=== PATIENT | male | born 1995 | race Caucasian/White ===

== ENCOUNTER 2019-06-24 18:20 | Emergency (ER) | payer MEDICAID, SELFPAY ==
[2019-06-24 18:21] VITALS: BP 143/101; PULSE 101; RESP 15; TEMP 36.6; O2SAT 99; BMI 26.9
--- NOTE | 2019-06-24 18:30 | RAD_ITS ---
STUDY: X-RAY - PELVIS REASON FOR EXAM: Male, 24 years old. Mass, stone and ventral distal penis TECHNIQUE: One view of the pelvis was obtained. COMPARISON: None. FINDINGS: Normal visualized bilateral superior and inferior pubic rami. Normal pubic symphysis. Normal ischial tuberosities. Normal visualized right femoral head. Normal right acetabulum. Normal right hip joint. Normal visualized left femoral head. Normal left acetabulum. Normal left hip joint. Normal visualized soft tissue. 3 mm calcification within the left side the scrotum. Correlate with CT or MRI if needed. RAD/Pelvis 1 or 2 Views IMPRESSION: 3 mm left scrotal calcification. Electronically Signed: Mick Covarrubias DO at 19:27 EDT Tel [phone], Service support ,
--- NOTE | 2019-06-24 18:32 | ED.DCSUM_ITS ---
History of Present Illness Chief Complaint: Male Pain/Injury Informant: Patient Onset: Days Context: Sudden Onset Timing: Continuous, Waxes and wanes Quality: Pain Location: Distal ventral side penis Current Severity: Mild Maximum Severity: Moderate Worsened by: Erection, intercourse Relieved by: Nothing Associated Symptoms: No associated symptoms Narrative: Patient is a 24-year-old male who presents with pain distal ventral side of his penis. This is been present for several days. He was seen at the [facility] urgent care and urine amplification for gonorrhea and chlamydia are negative. Urine amplification for trichomonas was negative. He denies testicular pain. He does complain of pain at the tip of his penis with urination. There is no history of trauma. There is no history of renal ureterolithiasis. Prior similar symptoms: No Recent Illness/Hospitalization: No - Past Medical History (1) Sexually transmitted infection Status: Acute Past Medical History - Allergies and Home Meds Allergies/Adverse Reactions: Allergies amoxicillin trihydrate [From Augmentin] Allergy (Verified 06/24/19 18:23) Hives naproxen Allergy (Verified 06/24/19 18:23) Itching potassium clavulanate [From Augmentin] Allergy (Verified 06/24/19 18:23) Hives Primary Care Physician: Elian Ann MD [STAFF PHYSICIAN] - Prior records reviewed: Yes Past Medical History: None Surgical History: no surgical history Lives: Alone Smoking Status: Current every day smoker Alcohol: Occasional Drugs: None Review of Systems General: Denies: Chills, Fever, Malaise, Subjective, Sweats, Weight loss, - Genitourinary: Denies: Dysuria, Hematuria, Frequency Musculoskeletal: Denies: Myalgias, Arthralgias, Neck pain, Back pain, Swelling, Extremity Pain, -, - Skin: Denies: Rash, Wounds Hematologic: Denies: Easy bruising, Easy bleeding Allergy: Denies: Uticaria, Swelling of the mouth Physical Exam Vital Signs/Narrative: Vital Signs Temp Pulse Resp BP Pulse Ox 06/24/19 18:21 97.8 F 101 H 15 143/101 H 99 Inital Vital Signs reviewed: Yes General: Well nourished, Well developed, No Acute Distress Eyes: Perrl, EOMI. Negative for: Pale conjunctiva, Scleral icterus ENT: Moist mucous membranes, No rhinorrhea Abdomen: Soft, Nontender, Nondistended, Normal bowel sounds, No masses Rectal: Deferred : - - Patient is circumcised. There is no penile lesion or discharge noted. Testicles are descended bilaterally with no testicular or epididymal pain. There is no inguinal mass or inguinal lymphadenopathy. Ventral side distal third of the penis there is a nodule/mass that is palpable. The area is not fluctuant. There is no erythema or warmth. Skin: Normal color, No rash. Negative for: Cyanosis, Diaphoresis, Jaundice, No Trauma Neurological: Alert, Oriented x3, Cranial nerves II-XII grossly intact, Normal S trength, Normal Sensation. Negative for: Normal Gait - Gait is abnormal because of pain Psychological: Normal affect, Normal Mood Diagnostic/Tx/Re-eval Chest X-Ray - ED: 1 View, Read by ED Physician, - - X-ray was obtained of the pelvis. There is no foreign body or stone noted. - Medical Decision Making Since there is a palpable nodule/mass will obtain x-ray to evaluate if there is a urethral stone. Otherwise will refer to urology. Since there is no stone concern this may represent an abscess. He was referred to urology. ED Disposition - Plan for ED Patient: Disposition: Home or Assisted Living Diagnosis: Pain in penis Instructions: PAIN, Uncertain Cause (Acute) Referrals: Elian Ann MD [STAFF PHYSICIAN] - Robert Arciniega MD [STAFF PHYSICIAN] - As soon as possible Additional Instructions: Cause of your pain is unknown. Since you have had pain for several days with a negative work-up for sexually transmitted infection you were referred to urology to determine the cause of your pain and lump.
[2019-06-24 19:39] VITALS: PULSE 76; RESP 18; O2SAT 98
--- NOTE | 2019-06-24 19:39 | ED.RN ---
THIS NURSE REVIEWED D/C INSTRUCTIONS WITH PT. PT VERBALIZED UNDERSTANDING OF INSTRUCTIONS. PT DENIES FURTHER NEEDS OR QUESTIONS AT THIS TIME. PT AMBULATES FROM ROOM ON OWN WITHOUT ASSISTANCE FROM STAFF
== END 2019-06-24 19:40 | disposition home or self-care (01) ==
PROVIDERS: Emergency Provider Emergency Medicine
DX: N48.89 Other specified disorders of penis (principal); Z86.19 Personal history of other infectious and parasitic diseases; F17.200 Nicotine dependence, unspecified, uncomplicated
CPT/HCPCS: 72170; 99282

== ENCOUNTER 2019-12-31 03:16 | Emergency (ER) | payer SELFPAY ==
[2019-12-31 03:18] VITALS: BP 144/98; PULSE 71; RESP 16; TEMP 36.4; O2SAT 100; BMI 28.5
--- NOTE | 2019-12-31 03:28 | CT_ITS ---
STUDY: CT ABDOMEN AND PELVIS WITHOUT CONTRAST REASON FOR EXAM: Male, 24 years old. Right lower quadrant pain. Appendectomy 8 years ago. TECHNIQUE: Transaxial images were obtained from the dome of the diaphragm to the symphysis pubis without oral contrast, and without intravenous contrast. Sagittal and coronal images were reconstructed. Individualized dose optimization techniques were used for this CT. COMPARISON: 04/07/2011 CT abdomen and pelvis. FINDINGS: Partially visualized lower chest: Lung bases unremarkable. Liver: No concerning lesions. Gallbladder and biliary tree: No visible gallstones. No pericholecystic inflammation. No biliary ductal dilation. Pancreas: No pancreatic lesions or inflammation. Spleen: Normal size, no splenic lesions. Adrenal glands: No concerning masses. Kidneys and ureters: 3 mm proximal right ureteral stone with mild right hydronephrosis. No residual right-sided stones. Single, 2 mm diameter, nonobstructing stone posterior calyx upper pole left kidney. Left kidney otherwise unremarkable. Both ureters are otherwise unremarkable. Bowel: Prior appendectomy. No obstruction or inflammation of the bowel. Urinary bladder: No stones or wall thickening. Reproductive:Normal size prostate. Vascular: No abdominal aortic aneurysm. Retroperitoneal and peritoneal spaces: No ascites or free air. No retroperitoneal lesions. Osseous: No acute osseous abnormality. Abdominal and pelvic wall: No concerning findings. CT/Abdomen/Pelvis without Cont IMPRESSION: 3 mm proximal right ureteral stone with mild hydronephrosis. 2 mm nonobstructing left renal stone. Electronically Signed: Jaiden Santiago, at 4:18 EST Tel , Service support ,
[2019-12-31] MEDS: Ketorolac 30 MG/ML Syringe IV (03:42)
[2019-12-31] MEDS: 0.9% Normal Saline 1,000 ML 125 ML IV (03:42)
[2019-12-31 03:47] LABS: Absolute Lymphocyte Count 2.18 X10^3/uL (0.83-4.51); Absolute Neutrophil Count 3.1 X10^3/uL (2.0-7.7); Basophil# 0.07 X10^3/uL; Basophil% 1.1 % (0-1); Eosinophil# 0.31 X10^3/uL; Eosinophils% 4.7 % (0-5); Hematocrit 43.2 % (40-54); Hemoglobin 14.7 g/dL (13.0-16.5); Lymphocyte # 2.18 X10^3/ul (4.0); Lymphocyte % 33.1 % (19-41); Mean Corpuscular Hgb 29.8 pg (27.0-32.0); Mean Corpuscular Volume 87.4 fL (80-94); Mean Platelet Vol. 9.9 fl (6.2-12.0); Monocyte# 0.91 X10^3/uL; Monocyte% 13.8 % (0-10); NRBC Flagged by Analyzer 0 % (0-5); Platelet Count 208 K/mm3 (150-450); RBC Distribution Width SD 38.1 fl (35.1-43.9); Red Blood Count 4.94 M/mm3 (4.6-6.2); White Blood Count 6.6 K/mm3 (4.4-11.0)
[2019-12-31 03:52] LABS: Bacteria 0 SEEN /hpf (None Seen); Glucose, Dipstick Normal (Normal); Ketone-Dipstick Negative (Negative); Leukocyte Esterase-Dipstick 25 /ul (Negative); Mucous, Urine 0 SEEN /hpf (<or=2+); Nitrite-Dipstick Negative (Negative); Occult Blood-Urine 150 /ul (Negative); Protein-Dipstick 15 mg/dl (Negative); Specific Gravity, Urine 1.025 (1.002-1.030); Squamous Epithelial Cells - UA 0 SEEN /hpf (0-5); Urine Bilirubin Dipstick Negative (Negative); Urine Urobilinogen Normal (Normal)
[2019-12-31 03:55] LABS: Color, Urine Yellow (Yellow); Urine Clarity Clear (Clear)
[2019-12-31 03:58] LABS: Red Blood Cells-Urine 25-50 SEEN /hpf (0-5); White Blood Cells 10-25 SEEN /hpf (0-5)
[2019-12-31 04:00] LABS: Amorphous Sediment 1+
[2019-12-31 04:02] LABS: Anion Gap 2 (5-15); BUN 18 mg/dL (7-18); BUN/Creat Ratio 16.5 RATIO (10-20); Calcium,Total 8.8 mg/dL (8.5-10.1); Chloride 110 mmol/L (98-107); Creatinine, Serum 1.09 mg/dL (0.70-1.30); EST Glomerular Filtration Rate 87 mL/min (>60); Est Glom Filt Rate - Afr Amer 106 mL/min (>60); Estimated Creatinine Clearance 110.34 ml/min; Glucose 112 mg/dL (74-106); Potassium 4.1 mmol/L (3.5-5.1); Sodium Level 142 mmol/L (136-145)
--- NOTE | 2019-12-31 04:31 | ED.VISSUMM ---
- ER Visit Summary Date of Service: 12/31/19 Chief Complaint: [Abdominal pain] History of Present Illness: The patient is a 24 M [presents the emergency department with sudden onset of right-sided abdominal pain that started 30 minutes ago. Patient states that he was awoken from sleep with severe pain in his right side. Patient denies any nausea or vomiting. He denies urinary symptoms. Has had no fever. He is never had pain like this before. Patient has had prior appendectomy. No history of kidney stones.] Physical Examination: [HEENT-PERRLA, EOMI. Cranial nerves II through XII grossly intact. TMs clear. Mucous membranes moist. No adenopathy. Cardiovascular-regular rate and rhythm without murmur or ectopy Lungs-clear to auscultation, chest wall stable without crepitus or subcu emphysema Abdomen-normoactive bowel sounds, soft. Patient has mild right lower quadrant tenderness on palpation. There is no rebound, rigidity, or perineal signs. No CVA tenderness on exam. Extremities-intact ?4, normal range of motion, normal pulses, atraumatic] Test Results: [CBC with differential was normal. Chemistries normal. Urinalysis showed 25-50 RBCs and 10-25 WBCs with no bacteria noted and [address] flank showed a 3 mm proximal right ureteral stone with mild hydro-ureter.] Emergency Department Course and Treatment: [Patient had an IV line established and was medicated with Toradol 30 mg IV. Patient's pain essentially resolved.] Treatment Plan: Patient will be given urine strainers as well as a prescription for Naprosyn and [place]. 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 Advised to return if worsening pain, fever, vomiting, or condition should worsen anyway.] Disposition: [Discharged home in stable condition] Impression: [Kidney stone with colic] This note was generated with [employer] dictation software. It may contain incorrect words, spelling, and punctuation that were not noted in review of the chart prior to signing ED Disposition - Plan for ED Patient: Referrals: Care Physician,No Primary [Primary Care Provider] -
--- NOTE | 2019-12-31 04:33 | DCINST.ED_ITS ---
ED Disposition - Plan for ED Patient: Instructions: KIDNEY STONE w/ Colic Prescriptions: Naproxen [Naprosyn] 500 mg PO BID PRN #20 tab Prescription Printed Hydrocodone Bitart/Apap 5-325 [[place] 5MG-325MG] 1 tab PO Q4H PRN PRN 2 Days #14 tab PRN Reason: Pain Prescription Printed Referrals: Care Physician,No Primary [Primary Care Provider] - Robert Arciniega MD [STAFF PHYSICIAN] - 3-5 Days
[2019-12-31 04:50] VITALS: PULSE 84; RESP 16; O2SAT 98
--- NOTE | 2020-01-12 02:03 | ED.RN ---
CHART OPENED TO PRINT STICKERS FOR T-SHEET
== END 2019-12-31 04:52 | disposition home or self-care (01) ==
LOC: ED 03:44
PROVIDERS: Emergency Provider Emergency Medicine
DX: N13.2 Hydronephrosis with renal and ureteral calculous obstruction (principal)
CPT/HCPCS: 74176; 80048; 81001; 85025; 96361; 96374; 99283; J7030; A4216

== ENCOUNTER 2020-02-14 19:50 | Emergency (ER) | payer SELFPAY ==
[2020-02-14 19:51] VITALS: BP 161/71; PULSE 83; RESP 19; TEMP 36.3; O2SAT 98; BMI 28.1
--- NOTE | 2020-02-14 20:02 | ED.VIS.GEN ---
History of Present Illness Chief Complaint: Flank Pain Detail of Chief Complaint: Left flank pain Informant: Patient Onset: Yesterday Context: Sudden Onset Timing: Continuous, Waxes and wanes Quality: Colicky Location: Left flank radiating anteriorly Current Severity: Mild Maximum Severity: Severe Worsened by: Nothing Relieved by: Nothing Associated Symptoms: Nausea Narrative: Patient is a 24-year-old male who was seen in December and diagnosed with an obstructing 3 mm stone. He presents because of abrupt onset of left flank pain that radiates anteriorly. Onset yesterday. Pain is constant and waxing and waning nature. He denies dysuria, frequency, urgency but does report urgency. He denies testicular pain. There is no history of trauma. There are no precipitating, alleviating or exacerbating factors. Patient states he did pass the right stone. Prior similar symptoms: Yes Recent Illness/Hospitalization: Yes - December 2019 - Past Medical History (1) Right ureteral stone Status: Suspected (2) Renal calculus, left Status: Acute Past Medical History - Allergies and Home Meds Allergies/Adverse Reactions: Allergies amoxicillin trihydrate [From Augmentin] Allergy (Verified 02/14/20 19:50) Hives naproxen Allergy (Verified 02/14/20 19:50) Itching potassium clavulanate [From Augmentin] Allergy (Verified 02/14/20 19:50) Hives Primary Care Physician: Care Physician,No Primary [Primary Care Provider] - Surgical History: no surgical history Lives: Alone Smoking Status: Current every day smoker Alcohol: Rare Drugs: None Review of Systems General: Denies: Chills, Fever, Malaise, Subjective, Sweats, Weight loss, - ENT: Denies: Bilateral ear pain, Rhinorrhea, Sore throat Cardiovascular: Denies: Chest pain, Palpitations Respiratory: Denies: Dyspnea, Cough, Dyspnea on exertion Gastrointestinal: Reports: Abdominal pain, Nausea. Denies: Vomiting, Diarrhea, Constipation, Melena, Hematochezia, -, - Genitourinary: Denies: Dysuria, Hematuria, Frequency Musculoskeletal: Reports: Back pain. Denies: Myalgias, Arthralgias, Neck pain, Swelling, Extremity Pain, -, - Skin: Denies: Rash, Wounds Endocrine: Denies: Polyuria, Polydipsia Hematologic: Denies: Easy bruising, Easy bleeding Physical Exam Vital Signs/Narrative: Vital Signs Temp Pulse Resp BP Pulse Ox 02/14/20 19:51 97.4 F L 83 19 H 161/71 H 98 Inital Vital Signs reviewed: Yes General: Well nourished, Well developed, No Acute Distress, - - Appears uncomfortable. Head: Normocephalic, Atraumatic. Negative for: Trauma, Tenderness Eyes: Perrl, EOMI. Negative for: Pale conjunctiva, Scleral icterus ENT: Moist mucous membranes, No rhinorrhea Neck: Supple, Nontender, No lymphadenopathy, No JVD Cardiovascular: Regular rate, Regular rhythm, No murmurs, Normal S1, Normal S2 Respiratory: No distress, CTA bilaterally, Chest nontender Abdomen: Soft, Nontender, Nondistended, Normal bowel sounds Back: CVA tenderness Extremities: Nontender, No edema Skin: Normal color, No rash Neurological: Alert, Oriented x3, Cranial nerves II-XII grossly intact, Normal Strength, Normal Sensation Psychological: Normal affect, Normal Mood Diagnostic/Tx/Re-eval Laboratory Results 02/14/20 20:25 Urine Color Yellow Urine Clarity Clear Urine pH 6.0 Ur Specific [place] 1.025 Urine Protein 15 H Urine Glucose (UA) Normal Urine Ketones Negative Urine Occult Blood 10 H Urine Nitrite Negative Urine Bilirubin Negative Urine Urobilinogen Normal Ur Leukocyte Esterase 100 H Urine RBC 0 SEEN Urine WBC 10-25 SEEN Ur Squamous Epith Cells 0 SEEN Urine Bacteria 0 SEEN Urine Mucus 0 SEEN Reveals pyuria without bacteria. There is evidence of occult blood. Patient presentation was consistent with a left ureteral stone. Since he had a recent CAT scan and the size of the stone is known and is only 2 mm will not rescan in light of age because of amount of radiation. Patient is understanding of this. He received a dose of Rocephin. Urine culture was sent. He was referred to urology. He was given specific signs and symptoms that necessitated return. - Medical Decision Making IV was placed. He normal saline at 250 cc/h. Because of allergy to NSAIDs he was treated with 4 mg of morphine and given 4 mg of Zofran for his nausea. Since he had a recent CAT scan that revealed a 2 mm stone on the left and no other stone will obtain a UA. If there is evidence infection will perform CT. Patient was informed reason not to repeat CAT scans because the amount of radiation and the fact he is only 24 years of age. Documented in laboratory portion of the chart ED Disposition - Plan for ED Patient: Disposition: Home or Assisted Living Diagnosis: Left ureteral calculus, Pyuria Instructions: KIDNEY STONE w/ Colic Prescriptions: Smz/Tmp Ds [Bactrim Ds] 1 tab PO BID #6 tab Transmission Status: Pending to [facility] Hydrocodone Bitart/Apap 5-325 [[place] 5MG-325MG] 1 tablet PO Q6H PRN PRN 3 Days #10 tablet PRN Reason: Pain Transmission Status: Received by [facility] Referrals: Care Physician,No Primary [Primary Care Provider] - Robert Arciniega MD [STAFF PHYSICIAN] - 3-5 Days
[2020-02-14] MEDS: Ondansetron 4 MG/2 ML Vial IV (20:08)
[2020-02-14] MEDS: Morphine 4 MG/ML Syringe IV (20:09)
[2020-02-14] MEDS: 0.9% Normal Saline 1,000 ML 250 ML IV (20:20)
[2020-02-14 20:32] LABS: Bacteria 0 SEEN /hpf (None Seen); Mucous, Urine 0 SEEN /hpf (<or=2+); Red Blood Cells-Urine 0 SEEN /hpf (0-5); Squamous Epithelial Cells - UA 0 SEEN /hpf (0-5)
[2020-02-14 20:51] LABS: Color, Urine Yellow (Yellow); Glucose, Dipstick Normal (Normal); Ketone-Dipstick Negative (Negative); Leukocyte Esterase-Dipstick 100 /ul (Negative); Nitrite-Dipstick Negative (Negative); Occult Blood-Urine 10 /ul (Negative); Protein-Dipstick 15 mg/dl (Negative); Specific Gravity, Urine 1.025 (1.002-1.030); Urine Bilirubin Dipstick Negative (Negative); Urine Clarity Clear (Clear); Urine Urobilinogen Normal (Normal)
[2020-02-14 20:52] LABS: White Blood Cells 10-25 SEEN /hpf (0-5)
[2020-02-14] MEDS: Ceftriaxone 1 GM/50 ML BAG IV (21:14)
== END 2020-02-14 21:53 | disposition home or self-care (01) ==
PROVIDERS: Emergency Provider Emergency Medicine
DX: N20.1 Calculus of ureter (principal); F17.200 Nicotine dependence, unspecified, uncomplicated
CPT/HCPCS: 81001; 87086; 96365; 96374; 96375; 99283; J7030; A4216; J2405

== ENCOUNTER 2020-03-22 22:02 | Emergency (ER) | payer SELFPAY ==
[2020-03-22 22:03] VITALS: BP 140/80; PULSE 80; RESP 14; TEMP 36.7; O2SAT 97; BMI 26.9
--- NOTE | 2020-03-22 23:18 | ED.VIS.GEN ---
History of Present Illness Chief Complaint: Flank Pain Informant: Patient Narrative: Stated he is having acute right-sided flank pain that started days ago. He feels sharp and stabbing pain in his right flank radiating into the anterior abdomen. He feels like it is moving down. He had a history of kidney stones starting a couple months ago. He was in the emergency department in December and had a CAT scan that showed bilateral kidney stones. The one on the left however was asymptomatic in the kidney. He followed up the next month and passed that left kidney stone. He comes back with recurrent pain. His previous stones were 3 mm and 2 mm on CAT scan in December. Yesterday he did not have much pain but when it moved down further he had worsening pain. This is similar to his previous kidney stones. History of appendix removal in the past. Denies any urinary symptoms or fevers or chills. He took a half of a Vicodin that he had leftover. He has had some mild nausea. Current severity is mild to moderate. Comes in waxing and waning symptoms. - Past Medical History (1) Renal calculus, left Status: Acute (2) Sexually transmitted infection Status: Acute (3) Right ureteral stone Status: Suspected Past Medical History - Allergies and Home Meds Allergies/Adverse Reactions: Allergies acetaminophen [From Vicodin] Allergy (Verified 03/22/20 22:19) Rash amoxicillin trihydrate [From Augmentin] Allergy (Verified 03/22/20 22:19) Hives hydrocodone [From Vicodin] Allergy (Verified 03/22/20 22:19) Rash naproxen Allergy (Verified 03/22/20 22:19) Itching potassium clavulanate [From Augmentin] Allergy (Verified 03/22/20 22:19) Hives Primary Care Physician: Robert Arciniega MD [STAFF PHYSICIAN] - Prior records reviewed: Yes Past Medical History: - - See problem list Surgical History: no surgical history Lives: Spouse/ Significant Other Smoking Status: Current every day smoker Alcohol: None Drugs: None Review of Systems General: Denies: Chills, Fever, Sweats Eyes: Denies: Visual changes - bilaterally, Diplopia ENT: Denies: Rhinorrhea, Sore throat Cardiovascular: Denies: Chest pain, Palpitations Respiratory: Denies: Dyspnea, Cough, Dyspnea on exertion Gastrointestinal: Reports: Abdominal pain, Nausea. Denies: Vomiting, Diarrhea, Melena, Hematochezia Genitourinary: Denies: Dysuria, Hematuria, Frequency Musculoskeletal: Reports: Back pain. Denies: Extremity Pain Skin: Denies: Rash, Wounds Neurological: Denies: Headache, Weakness, Numbness Physical Exam Vital Signs/Narrative: Vital Signs Temp Pulse Resp BP Pulse Ox 03/22/20 22:03 98.1 F 80 14 140/80 H 97 General: Well nourished, Well developed, No Acute Distress Head: Normocephalic, Atraumatic Eyes: Perrl, EOMI ENT: Moist mucous membranes, No rhinorrhea Neck: Supple, Nontender Cardiovascular: Regular rate, Regular rhythm, No murmurs Respiratory: No distress, CTA bilaterally, Chest nontender Abdomen: Soft, Nontender, Nondistended, Normal bowel sounds Back: Nontender, Normal Inspection Extremities: Nontender, No edema Skin: Normal color, No rash Neurological: Alert, Oriented x3, Cranial nerves II-XII grossly intact, Normal Strength, Normal Sensation Psychological: Normal affect, Normal Mood Diagnostic/Tx/Re-eval - Medical Decision Making At this time I feel the patient has a recurrent kidney stone. Given IV fluids, Zofran, Toradol, morphine. I do not feel he needs repeat lab work or imaging. Patient is in agreement to this. Discussed radiation on the body. He has not followed up with urology yet. Feels significantly better on reevaluation. At this time he will be discharged with Percocet and Zofran and follow-up with urology for suspected recurrent kidney stone ED Disposition - Plan for ED Patient: Disposition: Home or Assisted Living Diagnosis: Kidney stone on right side Instructions: ED Renal Stone w Colic Prescriptions: Oxycodone HCl/Acetaminophen [Percocet 5/325] 1 - 2 tab PO Q6H PRN PRN 3 Days #12 tab PRN Reason: Pain Prescription Printed Ondansetron [Zofran Odt] 4 mg PO Q8H PRN PRN #10 tab PRN Reason: Nausea Prescription Printed Referrals: Robert Arciniega MD [STAFF PHYSICIAN] -
[2020-03-22] MEDS: Morphine 4 MG/ML Syringe IV (23:31)
[2020-03-22] MEDS: Ondansetron 4 MG/2 ML Vial IV (23:32)
[2020-03-22] MEDS: Ketorolac 15 MG/ML Vial IV (23:35)
[2020-03-23 00:18] VITALS: BP 157/72; PULSE 77; RESP 16; O2SAT 97
== END 2020-03-23 00:50 | disposition home or self-care (01) ==
PROVIDERS: Emergency Provider Emergency Medicine
DX: N20.0 Calculus of kidney (principal); Z87.442 Personal history of urinary calculi; F17.200 Nicotine dependence, unspecified, uncomplicated
CPT/HCPCS: 96361; 96374; 96375; 99284; J7030; A4216; J2405

== ENCOUNTER 2020-04-30 23:04 | Emergency (ER) | payer MEDICAID, SELFPAY ==
[2020-04-30 23:05] VITALS: PULSE 67; RESP 18; TEMP 36.1; O2SAT 96; BMI 25.9
[2020-04-30 23:14] VITALS: BP 155/96
--- NOTE | 2020-04-30 23:27 | CT_ITS ---
STUDY: CT ABDOMEN AND PELVIS WITHOUT CONTRAST REASON FOR EXAM: Male, 24 years old. RT ABD AND FLANK PAIN/HX OF KIDNEY STONES RADIATION DOSAGE (If Supplied By Facility): CTDIvol = ( 7.83 ) mGy, DLP = ( 375.75 ) mGycm TECHNIQUE: Transaxial images were obtained from the dome of the diaphragm to the symphysis pubis without oral contrast, and without intravenous contrast. Sagittal and coronal images were reconstructed. Individualized dose optimization techniques were used for this CT. COMPARISON: None. FINDINGS: The visualized lung bases are unremarkable. The visualized portions of the heart are within normal limits. Normal liver. Normal gallbladder and extrahepatic biliary system. Normal spleen. Normal pancreas. Normal bilateral adrenal glands. There is a 4 mm stone in the distal RIGHT ureter causing moderate RIGHT hydronephrosis and hydroureter. There is a 3 mm stone in the upper pole of the LEFT kidney. There is NO LEFT hydronephrosis. Normal visualized stomach. Normal small intestine. Normal colon. There has been an appendectomy. Normal abdominal aorta. Normal inferior vena cava. Normal retroperitoneum. Normal urinary bladder. There is NO ascites, free air, abscess or adenopathy. Normal abdominal wall. Normal osseous structures. CT/Abdomen/Pelvis without Cont IMPRESSION: There is a 4 mm stone in the distal RIGHT ureter causing moderate RIGHT hydronephrosis and hydroureter. There is a 3 mm stone in the upper pole of the LEFT kidney. There is NO LEFT hydronephrosis. Normal visualized stomach. Normal small intestine. Normal colon. There has been an appendectomy. There is NO ascites, free air, abscess or adenopathy. Electronically Signed: Terry Akins MD at 0:17 EDT , Service support ,
--- NOTE | 2020-04-30 23:28 | ED.VIS.GEN ---
History of Present Illness Chief Complaint: Abd Pain Detail of Chief Complaint: Right flank pain radiating anteriorly Informant: Patient Onset: Hours - 1.5 hours prior to presentation Context: Sudden Onset Timing: Continuous, Waxes and wanes Quality: The worst pain I have experienced Location: Right flank and right anterior abdomen Current Severity: Severe Maximum Severity: Severe Worsened by: Nothing, unable to find position of comfort Relieved by: Nothing Associated Symptoms: Nausea Narrative: Patient is a 24-year-old male with history of renal and ureterolithiasis. He was seen 6 weeks ago. Is diagnosed with ureteral stone. He did not have a CAT scan at that time. He presents now with abrupt severe colicky pain that started in the right flank and radiates anteriorly. Does not radiate to the testicle. He denies dysuria, frequency, urgency or hematuria. Denies fever chills. Denies cardiac respiratory symptoms. There is no history of trauma. He has not noted any rash. He denies testicular pain. Prior similar symptoms: Yes Recent Illness/Hospitalization: Yes - 6 weeks ago - Past Medical History (1) Renal calculus, left Status: Acute (2) Sexually transmitted infection Status: Acute (3) Right ureteral stone Status: Suspected Past Medical History - Allergies and Home Meds Allergies/Adverse Reactions: Allergies acetaminophen [From Vicodin] Allergy (Verified 04/30/20 23:04) Rash amoxicillin trihydrate [From Augmentin] Allergy (Verified 04/30/20 23:04) Hives hydrocodone [From Vicodin] Allergy (Verified 04/30/20 23:04) Rash naproxen Allergy (Verified 04/30/20 23:04) Itching potassium clavulanate [From Augmentin] Allergy (Verified 04/30/20 23:04) Hives Primary Care Physician: Care Physician,No Primary [Primary Care Provider] - Prior records reviewed: Yes Surgical History: no surgical history Lives: Alone Smoking Status: Current every day smoker Alcohol: Rare Drugs: None Review of Systems General: Denies: Chills, Fever, Malaise, Subjective, Sweats ENT: Denies: Rhinorrhea, Sore throat Cardiovascular: Denies: Chest pain, Palpitations Respiratory: Denies: Dyspnea, Cough, Dyspnea on exertion Gastrointestinal: Reports: Abdominal pain, Nausea. Denies: Vomiting, Diarrhea, Constipation, Melena, Hematochezia, -, - Musculoskeletal: Reports: Back pain. Denies: Myalgias, Arthralgias, Neck pain, Swelling, Extremity Pain, -, - Skin: Denies: Rash, Wounds Neurological: Denies: Headache, Weakness, Numbness Endocrine: Denies: Polyuria, Polydipsia Hematologic: Denies: Easy bruising Physical Exam Vital Signs/Narrative: Vital Signs Temp Pulse Resp BP Pulse Ox 04/30/20 23:14 155/96 H 04/30/20 23:05 96.9 F L 67 18 96 Inital Vital Signs reviewed: Yes General: Well nourished, Well developed, Acute Distress Head: Normocephalic, Atraumatic Eyes: Perrl, EOMI. Negative for: Pale conjunctiva, Scleral icterus Neck: Supple, Nontender, No lymphadenopathy, No JVD Cardiovascular: Regular rate, Regular rhythm, No murmurs, Normal S1, Normal S2 Respiratory: No distress, CTA bilaterally, Chest nontender Abdomen: Soft, Nontender, Nondistended, Normal bowel sounds, No masses Rectal: Deferred : - - Testes tender bilateral with no testicular pain or bulging right or left groin. Back: Nontender, Normal Inspection. Negative for: CVA tenderness Extremities: Nontender, No edema Skin: Normal color, No rash, No Trauma. Negative for: Cyanosis, Diaphoresis, Jaundice Neurological: Alert, Oriented x3, Cranial nerves II-XII grossly intact, Normal Strength, Normal Sensation Psychological: Normal affect Diagnostic/Tx/Re-eval Impressions Abdomen/Pelvis CT 04/30/20 23:27 IMPRESSION: There is a 4 mm stone in the distal RIGHT ureter causing moderate RIGHT hydronephrosis and hydroureter. There is a 3 mm stone in the upper pole of the LEFT kidney. There is NO LEFT hydronephrosis. Normal visualized stomach. Normal small intestine. Normal colon. There has been an appendectomy. There is NO ascites, free air, abscess or adenopathy. Electronically Signed: Terry Akins MD at 0:17 EDT , Service support , 04/30/20 23:27 Abdomen/Pelvis without Cont [CT] Stat Laboratory Results 04/30/20 04/30/20 23:20 23:20 WBC 9.7 RBC 5.29 Hgb 15.7 Hct 45.0 MCV 85.1 MCH 29.7 MCHC 34.9 RDW Std Deviation 35.4 RDW Coeff of Ann 11.6 Plt Count 294 MPV 10.1 Immature Gran % (Auto) 0.300 Neut % (Auto) 60.3 Lymph % (Auto) 21.6 [place] % (Auto) 14.0 H Eos % (Auto) 3.1 Baso % (Auto) 0.7 Absolute Neuts (auto) 5.9 Absolute Lymphs (auto) 2.10 Nucleated RBC % 0 Sodium 142 Potassium 3.5 Chloride 108 H Carbon Dioxide 24.0 Anion Gap 10 BUN 14 Creatinine 1.25 Estim Creat Clear Calc 96.22 Est GFR (MDRD) Af Amer 90 Est GFR (MDRD) Non-Af 74 BUN/Creatinine Ratio 11.2 Glucose 133 H Calcium 9.4 CBC is unremarkable. Basic metabolic panel reveals elevated glucose of 133. CAT scan reveals an obstructing 4 mm right ureteral stone with hydroureter and hydronephrosis. He was referred to urology. - Medical Decision Making She is in obvious discomfort. He is writhing and pacing in the room. IV was established. He was treated with 4 mg of Zofran, 50 mg of Toradol and 4 mg of morphine IV push. Blood work was obtained to assess white count, H&H and renal function as well as urine to assess for infection. CT of the abdomen pelvis without contrast was obtained to determine size and location of presumed obstructing ureteral stone. Patient asked if he could leave since his mother had a traumatic injury and is going to outside facility. Patient will be discharged to home with appropriate home-going instructions and pain medicine. ED Disposition - Plan for ED Patient: Disposition: Home or Assisted Living Diagnosis: Hydronephrosis concurrent with and due to calculi of kidney and ureter Instructions: ED Renal Stone w Colic Prescriptions: Ibuprofen 800 mg PO TID #20 tab Prescription Printed Oxycodone HCl/Acetaminophen [Percocet 5/325] 1 tablet PO Q6H PRN PRN 5 Days #20 tablet PRN Reason: Oxycodone HCl/Acetaminophen [Percocet 5/325] 1 tab PO Q6H PRN PRN 5 Days #20 tab PRN Reason: Right flank/abdominal pain Prescription Printed Referrals: Care Physician,No Primary [Primary Care Provider] - Robert Arciniega MD [STAFF PHYSICIAN] - 3-5 Days
[2020-04-30] MEDS: Ondansetron 4 MG/2 ML Vial IV (23:36)
[2020-04-30] MEDS: Morphine 4 MG/ML Syringe IV (23:36)
[2020-04-30] MEDS: Ketorolac 30 MG/ML Syringe 15 MG IV (23:36)
[2020-04-30 23:44] LABS: Anion Gap 10 (5-15); BUN 14 mg/dL (7-18); BUN/Creat Ratio 11.2 RATIO (10-20); Calcium,Total 9.4 mg/dL (8.5-10.1); Chloride 108 mmol/L (98-107); Creatinine, Serum 1.25 mg/dL (0.70-1.30); EST Glomerular Filtration Rate 74 mL/min (>60); Est Glom Filt Rate - Afr Amer 90 mL/min (>60); Estimated Creatinine Clearance 96.22 ml/min; Glucose 133 mg/dL (74-106); Potassium 3.5 mmol/L (3.5-5.1); Sodium Level 142 mmol/L (136-145)
[2020-04-30 23:45] LABS: Absolute Neutrophil Count 5.9 X10^3/uL (2.0-7.7); Basophil# 0.07 X10^3/uL; Basophil% 0.7 % (0-1); Eosinophils% 3.1 % (0-5); Hemoglobin 15.7 g/dL (13.0-16.5); Lymphocyte % 21.6 % (19-41); Mean Corp Hgb Conc 34.9 g/dL (32-36); Mean Corpuscular Hgb 29.7 pg (27.0-32.0); Mean Corpuscular Volume 85.1 fL (80-94); Mean Platelet Vol. 10.1 fl (6.2-12.0); Monocyte# 1.36 X10^3/uL; NRBC Flagged by Analyzer 0 % (0-5); Neutrophil # 5.88 X10^3/uL (2.7-7.7); Neutrophil % 60.3 % (47-70); Platelet Count 294 K/mm3 (150-450); RBC Distribution Width CV 11.6 % (11.6-14.6); RBC Distribution Width SD 35.4 fl (35.1-43.9); Red Blood Count 5.29 M/mm3 (4.6-6.2); White Blood Count 9.7 K/mm3 (4.4-11.0)
[2020-05-01] MEDS: morphine 8 MG/ML Syringe 6 MG IV (00:05)
[2020-05-01] MEDS: 0.9% Normal Saline 1,000 ML 250 ML IV (00:10)
[2020-05-01 01:08] VITALS: BP 126/56; PULSE 74; RESP 16; O2SAT 98
== END 2020-05-01 01:25 | disposition home or self-care (01) ==
PROVIDERS: Emergency Provider Emergency Medicine
DX: N13.2 Hydronephrosis with renal and ureteral calculous obstruction (principal); Z87.442 Personal history of urinary calculi; F17.200 Nicotine dependence, unspecified, uncomplicated
CPT/HCPCS: 74176; 80048; 85025; 96361; 96374; 96375; 99283; A4216; J2405

== ENCOUNTER 2020-05-26 16:28 | Emergency (ER) | payer MEDICAID, SELFPAY ==
[2020-05-26 16:30] VITALS: BP 140/82; PULSE 89; RESP 16; TEMP 36.2; O2SAT 96; BMI 27.8
--- NOTE | 2020-05-26 17:40 | ED.DCSUM_ITS ---
- ER Visit Summary Date of Service: 05/26/20 Chief Complaint: COVID exposure and sore throat History of Present Illness: The patient is a 25 M who presents with a COVID exposure and sore throat that began yesterday. Patient admits to generalized body aches. Patient states nothing makes it better or worse. Patient states this is gradually getting worse since yesterday. Patient admits to decreased appetite. Patient states he lost his sense of smell. Patient admits to subjective chills and sweats. Patient denies any chest pain or shortness of breath. Patient admits to a cough. Patient also admits to some rhinorrhea. Physical Examination: Vital signs are stable. Patient is afebrile. Patient is in no acute distress. Oral mucosa is pink and moist. Oropharynx is mildly erythematous. There are no exudates. Neck is supple. Trachea is midline. There is no JVD. Heart was regular rate and rhythm. Lungs are clear and equal bilaterally. Abdomen is soft. Bowel sounds are normal. There is no tenderness. Cranial nerves II through XII are intact. There are no focal motor or sensory deficits. Test Results: Rapid strep was obtained. COVID swab was obtained and will be sent out. Emergency Department Course and Treatment: Patient did not want to wait for his rapid strep results. Patient was advised that his COVID swab will take 3 to 5 days. Patient was advised that his sore throat and myalgias could also be caused by strep throat and if this was positive he would not have to quarantine himself. Since he did not want to wait for his strep results, patient was instructed to quarantine himself until his COVID results are returned. Patient was instructed to follow-up with his primary care physician for test results. Patient understood and was agreeable with the plan. All questions were answered. Disposition: Discharge home Impression: Viral upper respiratory infection This note was generated with [employer] dictation software. It may contain incorrect words, spelling, and punctuation that were not noted in review of the chart prior to signing Capacity - Capacity Assessment Tool Can the patient make a choice & communicate that choice?: Yes Can the patient understand benefits, risks and alternatives?: Yes Can the patient make a logical, rational choice?: Yes Is the choice the patient makes consistent w/ their values?: Yes Is there an impending, emergent risk to the patient?: No ED Disposition - Plan for ED Patient: Disposition: Home or Assisted Living Diagnosis: Viral upper respiratory infection Referrals: Care Physician,No Primary [Primary Care Provider] -
--- NOTE | 2020-05-26 18:11 | ED.RN ---
PT YELLING AT THIS RN, STATES HE JUST WANTS PAPERS STATING HE NEEDS TO BE OFF WORK FOR 2 WEEKS DUE TO COVID EXPOSURE, ANGRY THAT MD ORDERED STREP THROAT SWAB, STATES HE NEVER ASKED FOR THAT. PT STATES HE DOESN'T WANT STREP RESULTS, JUST GIVE ME THE FUCKING PAPERWORK SO I CAN BE OFF WORK. DISCHARGE INSTRUCTIONS THAT ARE TYPICALLY GIVEN WITH CODID TESTING GIVEN TO PT. PT AMBULATED OUT OF DEPT.
== END 2020-05-26 18:14 | disposition home or self-care (01) ==
PROVIDERS: Emergency Provider Emergency Medicine
DX: J06.9 Acute upper respiratory infection, unspecified (principal); M79.10 Myalgia, unspecified site; R43.8 Other disturbances of smell and taste; R05 Cough; R11.0 Nausea; M54.9 Dorsalgia, unspecified; R51 Headache; J34.89 Other specified disorders of nose and nasal sinuses; R61 Generalized hyperhidrosis; Z20.828 Contact with and (suspected) exposure to other viral communicable diseases; Z72.0 Tobacco use
CPT/HCPCS: 87635; 87880; 99282; G2023; U0003

== ENCOUNTER 2020-06-08 18:26 | Emergency (ER) | payer MEDICAID, SELFPAY ==
[2020-06-08 18:27] VITALS: BP 152/70; PULSE 89; RESP 20; TEMP 36.6; O2SAT 98; BMI 27.8
--- NOTE | 2020-06-08 19:07 | CT_ITS ---
STUDY: CT ABDOMEN AND PELVIS WITHOUT CONTRAST REASON FOR EXAM: Male, 25 years old. RT FLANK PAIN. Hx of kidney stones. RADIATION DOSAGE (If Supplied By Facility): CTDIvol = ( 7.43 ) mGy, DLP = ( 358.28 ) mGycm TECHNIQUE: Transaxial images were obtained from the dome of the diaphragm to the symphysis pubis without oral contrast, and without intravenous contrast. Sagittal and coronal images were reconstructed. Individualized dose optimization techniques were used for this CT. COMPARISON: April 30, 2020 FINDINGS: The visualized lung bases are unremarkable. The visualized portions of the heart are within normal limits. Normal liver. The gallbladder is contracted. Normal spleen. Normal pancreas. Normal bilateral adrenal glands. Normal right kidney. There is 0.2 cm stone at the upper pole of the left kidney. There is a 0.5 cm stone at the left ureteropelvic junction, series 2 image 60/174. Normal visualized stomach. Normal small intestine. Normal colon. There are surgical clips in the region of the appendix consistent with a prior appendectomy. Normal abdominal aorta. Normal inferior vena cava. Normal retroperitoneum. Normal urinary bladder. There is no free fluid in the abdomen or pelvis. Normal abdominal wall. Normal osseous structures. 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 Passage of previously seen right distal ureteral stone. Improvement in previously noted right hydronephrosis. Electronically Signed: Alex Stallworth MD at 19:53 EDT , Service support ,
[2020-06-08] MEDS: Morphine 4 MG/ML Syringe IV (19:14)
[2020-06-08] MEDS: 0.9% Normal Saline 1,000 ML 999 ML IV (19:14)
[2020-06-08] MEDS: Ondansetron 4 MG/2 ML Vial IV (19:14)
[2020-06-08] MEDS: Ketorolac 15 MG/ML Vial IV (19:14)
[2020-06-08 19:18] LABS: Bacteria 0 SEEN /hpf (None Seen)
[2020-06-08 19:22] LABS: Color, Urine Yellow (Yellow); Glucose, Dipstick Normal (Normal); Ketone-Dipstick Negative (Negative); Leukocyte Esterase-Dipstick 25 /ul (Negative); Nitrite-Dipstick Negative (Negative); Occult Blood-Urine 250 /ul (Negative); Protein-Dipstick 15 mg/dl (Negative); Urine Bilirubin Dipstick Negative (Negative); Urine Clarity Clear (Clear); Urine Urobilinogen Normal (Normal)
--- NOTE | 2020-06-08 19:29 | ED.VIS.GI ---
History of Present Illness Chief Complaint: Flank Pain Informant: Patient - Abdominal Pain/Flank Pain Onset: Days Context: Gradual Onset Timing: Intermittent Quality: Sharp Location: Right Flank - Nausea/Vomiting/Emesis GI Symptom: Nausea Associated Symptoms: Dysuria. Negative for: Frequency, Hematuria Narrative: Patient is a 25-year-old male with history of kidney stones presenting with 3 to 4 days of worsening right flank pain. Patient was diagnosed with a kidney stone about a month ago. At that time he was found to be a 4 mm stone. He states the pain is better after about a week but then a similar pain returned 4 days ago. He states is become more constant in nature today. It radiates into his right groin. He states he is had some mild dysuria over the past day or 2. He has been alternating Tylenol and ibuprofen at home with no relief of his symptoms. Patient did follow-up with urology last time but was told the stone should pass and was not offered any medical intervention besides diet changes and lifestyle modifications. Patient has any fever chills. He has some mild nausea but no vomiting. He states his bowel movements fluctuating diarrhea and constipation but that is normal for him. No other complaints at this time. Past Medical History - Allergies and Home Meds Allergies/Adverse Reactions: Allergies acetaminophen [From Vicodin] Allergy (Verified 06/08/20 18:29) Rash amoxicillin trihydrate [From Augmentin] Allergy (Verified 06/08/20 18:29) Hives hydrocodone [From Vicodin] Allergy (Verified 06/08/20 18:29) Rash naproxen Allergy (Verified 06/08/20 18:29) Itching potassium clavulanate [From Augmentin] Allergy (Verified 06/08/20 18:29) Hives Primary Care Physician: Camilo Mazariegos NP-C [Primary Care Provider] - Past Medical History: - - Kidney stones Surgical History: appendectomy Smoking Status: Current every day smoker Review of Systems General: Denies: Chills, Fever, Sweats Eyes: Denies: Visual changes - bilaterally, Diplopia ENT: Denies: Rhinorrhea, Sore throat Cardiovascular: Denies: Chest pain, Palpitations Respiratory: Denies: Dyspnea, Cough, Dyspnea on exertion Gastrointestinal: Reports: Abdominal pain, Nausea. Denies: Vomiting, Diarrhea, Melena, Hematochezia Genitourinary: Reports: Dysuria. Denies: Hematuria, Frequency Musculoskeletal: Denies: Back pain, Extremity Pain Skin: Denies: Rash, Wounds Neurological: Denies: Headache, Weakness, Numbness Physical Exam Vital Signs/Narrative: Vital Signs Temp Pulse Resp BP Pulse Ox 06/08/20 18:27 98 F 89 20 H 152/70 H 98 Inital Vital Signs reviewed: Yes General: Well nourished, Well developed, No Acute Distress Head: Normocephalic, Atraumatic Eyes: Perrl, EOMI ENT: Moist mucous membranes, No rhinorrhea Neck: Supple, Nontender Cardiovascular: Regular rate, Regular rhythm, No murmurs Respiratory: No distress, CTA bilaterally, Chest nontender Abdomen: Soft, Nondistended, Normal bowel sounds, Tender - Right lower quadrant. Negative for: Guarding, Rebound tenderness Back: Nontender, Normal Inspection. 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 Passage of previously seen right distal ureteral stone. Improvement in previously noted right hydronephrosis. Electronically Signed: Alex Stallworth MD at 19:53 EDT , Service support , Laboratory Data 06/08/20 06/08/20 18:45 18:45 WBC 8.6 RBC 5.22 Hgb 15.4 Hct 44.6 MCV 85.4 MCH 29.5 MCHC 34.5 RDW Std Deviation 34.9 L RDW Coeff of Ann 11.3 L Plt Count 262 MPV 10.7 Immature Gran % (Auto) 0.200 Neut % (Auto) 51.6 Lymph % (Auto) 23.6 [place] % (Auto) 11.9 H Eos % (Auto) 11.7 H Baso % (Auto) 1.0 Absolute Neuts (auto) 4.4 Absolute Lymphs (auto) 2.03 Nucleated RBC % 0 Urine Color Yellow Urine Clarity Clear Urine pH 6.0 Ur Specific [place] 1.020 Urine Protein 15 H Urine Glucose (UA) Normal Urine Ketones Negative Urine Occult Blood 250 H Urine Nitrite Negative Urine Bilirubin Negative Urine Urobilinogen Normal Ur Leukocyte Esterase 25 H Urine RBC 25-50 SEEN Urine WBC 0-5 SEEN Ur Squamous Epith Cells 0-5 SEEN Urine Bacteria 0 SEEN Urine Mucus RARE - Medical Decision Making Patient is evaluated for 3 to 4 days of right flank pain. He has known history of kidney stones and most recently was diagnosed with a kidney stone about a month ago. Presentation is consistent with renal colic. I do not suspect appendicitis as patient is had a prior appendectomy. Urinalysis shows blood but no obvious signs of infection. Is consistent with a stone. He has no abnormalities of his kidney function or leukocytosis. CT of the abdomen pelvis obtained which does not show any acute ureteral stones. It is possible patient recently passed the stone. As patient does not have any acute cause of his pain that can be found on imaging, he is counseled he will receive 1 Percocet in the ER but only discharged home with Motrin. He is comfortable with this. He can follow-up with urology as needed. Patient is counseled on signs and symptoms requiring return to the emergency room. Patient verbalizes agreement and understand this plan. Patient discharged home in stable and improved condition. ED Disposition - Plan for ED Patient: Disposition: Home or Assisted Living Diagnosis: Hematuria, microscopic, Calculus of left kidney Instructions: ED RENAL STONE Passed Referrals: Camilo Mazariegos, DWIGHT-C [Primary Care Provider] - Additional Instructions: I suspect you recently passed a kidney stone I do not have any stone on the right side or other signs of inflammation. You have blood in your urine which is consistent with a recently passed kidney stone. Alternate Tylenol and ibuprofen as needed at home. If your symptoms do not improve, please follow-up with your primary care doctor or urology.
[2020-06-08 19:31] LABS: Squamous Epithelial Cells - UA 0-5 SEEN /hpf (0-5)
[2020-06-08 19:32] LABS: Mucous, Urine RARE /hpf (<or=2+)
[2020-06-08 19:33] LABS: White Blood Cells 0-5 SEEN /hpf (0-5)
[2020-06-08 19:34] LABS: Red Blood Cells-Urine 25-50 SEEN /hpf (0-5)
[2020-06-08 20:11] LABS: Absolute Lymphocyte Count 2.03 X10^3/uL (0.83-4.51); Absolute Neutrophil Count 4.4 X10^3/uL (2.0-7.7); Basophil# 0.09 X10^3/uL; Eosinophil# 1.01 X10^3/uL; Eosinophils% 11.7 % (0-5); Hematocrit 44.6 % (40-54); Hemoglobin 15.4 g/dL (13.0-16.5); Lymphocyte # 2.03 X10^3/ul (4.0); Lymphocyte % 23.6 % (19-41); Mean Corp Hgb Conc 34.5 g/dL (32-36); Mean Corpuscular Hgb 29.5 pg (27.0-32.0); Mean Corpuscular Volume 85.4 fL (80-94); Mean Platelet Vol. 10.7 fl (6.2-12.0); Monocyte# 1.02 X10^3/uL; Monocyte% 11.9 % (0-10); NRBC Flagged by Analyzer 0 % (0-5); Neutrophil # 4.43 X10^3/uL (2.7-7.7); Neutrophil % 51.6 % (47-70); Platelet Count 262 K/mm3 (150-450); RBC Distribution Width CV 11.3 % (11.6-14.6); RBC Distribution Width SD 34.9 fl (35.1-43.9); Red Blood Count 5.22 M/mm3 (4.6-6.2); White Blood Count 8.6 K/mm3 (4.4-11.0)
[2020-06-08 20:28] LABS: Anion Gap 5 (5-15); BUN 17 mg/dL (7-18); BUN/Creat Ratio 16.7 RATIO (10-20); Calcium,Total 9.3 mg/dL (8.5-10.1); Chloride 108 mmol/L (98-107); Creatinine, Serum 1.02 mg/dL (0.70-1.30); EST Glomerular Filtration Rate 94 mL/min (>60); Est Glom Filt Rate - Afr Amer 114 mL/min (>60); Estimated Creatinine Clearance 116.89 ml/min; Glucose 89 mg/dL (74-106); Potassium 4.3 mmol/L (3.5-5.1); Sodium Level 141 mmol/L (136-145)
[2020-06-08] MEDS: oxyCODONE 5 MG Tablet PO (20:36)
== END 2020-06-08 23:59 | disposition home or self-care (01) ==
PROVIDERS: Emergency Provider Emergency Medicine; PCP Nurse Practitioner Family; Visit Provider Emergency Medicine
DX: N13.2 Hydronephrosis with renal and ureteral calculous obstruction (principal); R31.29 Other microscopic hematuria; Z87.442 Personal history of urinary calculi; F17.200 Nicotine dependence, unspecified, uncomplicated
CPT/HCPCS: 74176; 80048; 81001; 85025; 96361; 96374; 96376; 99284; J7030; A4216; J2405

== ENCOUNTER → 2020-06-09 17:50 | Outpatient (CLI) | payer MEDICAID, SELFPAY ==
[2020-05-26 16:30] VITALS: BMI 27.8
[2020-06-08 18:27] VITALS: BMI 27.8
== END ==
PROVIDERS: PCP Nurse Practitioner Family; Referring Provider Nurse Practitioner Family; Visit Provider Nurse Practitioner Family
DX: Z11.59 Encounter for screening for other viral diseases (principal)
CPT/HCPCS: 87635; G2023; U0003

== ENCOUNTER 2020-11-14 18:29 | Emergency (ER) | payer MEDICAID, SELFPAY ==
[2020-11-14 18:30] VITALS: BP 139/87; PULSE 106; RESP 15; TEMP 35.9; O2SAT 98; BMI 26.2
--- NOTE | 2020-11-14 18:51 | ED.VIS.GEN ---
History of Present Illness Chief Complaint: Dental Narrative: Patient is a 25-year-old male who presents with dental pain. He states he had a filling fall out. He had not been having pain until about 4:00 this morning. He developed severe right-sided lower dental pain. He went to the urgent care. He was started on antibiotics. He was told to use Tylenol and ibuprofen which is not helping. He states he tried calling dentist but is unable to be seen for about 2 weeks. No fevers. No vomiting. Past Medical History - Allergies and Home Meds Allergies/Adverse Reactions: Allergies acetaminophen [From Vicodin] Allergy (Verified 11/14/20 18:32) Rash amoxicillin trihydrate [From Augmentin] Allergy (Verified 11/14/20 18:32) Hives hydrocodone [From Vicodin] Allergy (Verified 11/14/20 18:32) Rash naproxen Allergy (Verified 11/14/20 18:32) Itching potassium clavulanate [From Augmentin] Allergy (Verified 11/14/20 18:32) Hives Primary Care Physician: Camilo Mazariegos PARTS CLASSIFIER, PARTS CLASSIFIER-C [Primary Care Provider] - Past Medical History: None Surgical History: appendectomy Smoking Status: Current every day smoker Review of Systems All systems negative except as indicated General: Denies: Fever Eyes: Denies: Visual changes - bilaterally ENT: Reports: - - Dental pain. Denies: Bilateral ear pain Cardiovascular: Denies: Chest pain Respiratory: Denies: Dyspnea Gastrointestinal: Denies: Vomiting, Diarrhea Skin: Denies: Rash Neurological: Denies: Headache Physical Exam Vital Signs/Narrative: Vital Signs Temp Pulse Resp BP Pulse Ox 11/14/20 18:30 96.7 F L 106 H 15 139/87 H 98 Inital Vital Signs reviewed: Yes General: Well nourished Head: Normocephalic Eyes: EOMI ENT: Moist mucous membranes, - - Patient has focal dental decay of the right mandibular first molar, he has had previous third molar dental extractions I do not appreciate a focal dental abscess no fluctuance no soft tissue facial swelling he does have dental tenderness on percussion Cardiovascular: Tachycardia Respiratory: No distress Skin: Normal color Neurological: Alert Psychological: Normal affect Diagnostic/Tx/Re-eval - Medical Decision Making Patient does have focal dental decay. He was already started on antibiotics and is already contacted dentistry. He was given an oxycodone here and a prescription for short course of Percocet. Patient was discharged. ED Disposition - Plan for ED Patient: Disposition: Home or Assisted Living Diagnosis: Pain, dental Instructions: ED Dental Pain Prescriptions: Oxycodone HCl/Acetaminophen [Percocet 5/325] 1 tab PO Q6H PRN PRN 2 Days #8 tab PRN Reason: Pain Prescription Printed Referrals: Camilo Mazariegos NP, PARTS CLASSIFIER-C [Primary Care Provider] -
[2020-11-14] MEDS: oxyCODONE 5 MG Tablet PO (19:09)
== END 2020-11-14 19:13 | disposition home or self-care (01) ==
LOC: ED 19:03
PROVIDERS: Emergency Provider Emergency Medicine; PCP Nurse Practitioner Family
DX: K08.89 Other specified disorders of teeth and supporting structures (principal); K02.9 Dental caries, unspecified; Z98.818 Other dental procedure status; F17.200 Nicotine dependence, unspecified, uncomplicated
CPT/HCPCS: 99282

== ENCOUNTER 2020-12-20 07:04 | Emergency (ER) | payer MEDICAID, SELFPAY ==
[2020-12-20 07:05] VITALS: BP 126/110; PULSE 78; RESP 20; TEMP 37; O2SAT 100; BMI 58.3
--- NOTE | 2020-12-20 07:07 | ED.VIS.GEN ---
History of Present Illness Chief Complaint: Flank Pain Informant: Patient Narrative: 25-year-old male with history of kidney stones presents with left flank and left lower abdomen pain. He states this is sharp and woke him up from his sleep about an hour half prior to arrival. Patient states that he started having kidney stones this year. He has 3 in total which all past Andres easily. He has not required any intervention. He denies hematuria or dysuria. He denies abdominal trauma. He denies any change in bowel habits. Past Medical History - Allergies and Home Meds Allergies/Adverse Reactions: Allergies acetaminophen [From Vicodin] Allergy (Verified 11/14/20 18:32) Rash amoxicillin trihydrate [From Augmentin] Allergy (Verified 11/14/20 18:32) Hives hydrocodone [From Vicodin] Allergy (Verified 11/14/20 18:32) Rash naproxen Allergy (Verified 11/14/20 18:32) Itching potassium clavulanate [From Augmentin] Allergy (Verified 11/14/20 18:32) Hives Primary Care Physician: Care Physician,No Primary [Primary Care Provider] - Past Medical History: - - Kidney stones Surgical History: appendectomy Smoking Status: Current every day smoker Review of Systems General: Denies: Chills, Fever, Sweats Eyes: Denies: Visual changes - bilaterally, Diplopia ENT: Denies: Rhinorrhea, Sore throat Cardiovascular: Denies: Chest pain, Palpitations Respiratory: Denies: Dyspnea, Cough, Dyspnea on exertion Gastrointestinal: Reports: Abdominal pain, Nausea. Denies: Diarrhea, Constipation, Melena Genitourinary: Denies: Dysuria, Hematuria Musculoskeletal: Reports: Back pain - Left flank pain. Denies: Myalgias, Arthralgias Skin: Denies: Rash, Abscess Neurological: Denies: Headache, Weakness Psych: Denies: Depression, Anxiety Physical Exam Vital Signs/Narrative: Vital Signs Temp Pulse Resp BP Pulse Ox 12/20/20 07:05 98.6 F 78 20 H 126/110 H 100 General: Well nourished, No Acute Distress Head: Normocephalic, Atraumatic Eyes: Perrl, EOMI ENT: Moist mucous membranes, No rhinorrhea Cardiovascular: Regular rate, Regular rhythm Respiratory: No distress, CTA bilaterally Abdomen: Soft, Nondistended, Tender - Left lower quadrant tenderness to palpation Back: CVA tenderness - Left-sided. Negative for: Spinal tenderness Extremities: Nontender, No edema Skin: Normal color, No rash Neurological: Alert, Oriented x3 Psychological: Normal affect, Normal Mood Diagnostic/Tx/Re-eval Clinical Impression(s) from Imaging Studies Abdomen/Pelvis CT 12/20/20 07:45 IMPRESSION: 3 mm obstructing stone of the distal left ureter with mild ureteral dilatation and hydronephrosis. Electronically Signed: Jasmeet Eid MD at 8:15 EST Tel , Service support , Laboratory Data 12/20/20 12/20/20 07:30 07:30 WBC 5.8 RBC 4.71 Hgb 13.6 Hct 39.9 L MCV 84.7 MCH 28.9 MCHC 34.1 RDW Std Deviation 36.0 RDW Coeff of Ann 11.9 Plt Count 195 MPV 9.8 Immature Gran % (Auto) 0.000 Neut % (Auto) 37.4 L Lymph % (Auto) 33.3 [place] % (Auto) 14.2 H Eos % (Auto) 14.2 H Baso % (Auto) 0.9 Absolute Neuts (auto) 2.2 Absolute Lymphs (auto) 1.92 Nucleated RBC % 0 Sodium 140 Potassium 3.6 Chloride 106 Carbon Dioxide 28.0 Anion Gap 6 BUN 24 H Creatinine 0.96 Estim Creat Clear Calc 124.19 Est GFR (MDRD) Af Amer 122 Est GFR (MDRD) Non-Af 101 BUN/Creatinine Ratio 25.1 H Glucose 118 H Calcium 8.7 - Medical Decision Making Patient presenting with left flank pain. Patient found to have a 3 mm distal ureteral stone. There is associated hydronephrosis. Urinalysis shows small amount of blood but no infection. Patient's GFR is normal. He will be sent home with a prescription for Percocet, Zofran, Flomax. He has a urologist that he has seen in the past and he will follow up with him as needed. Impression: 1. 3 mm left ureteral stone 2. Hydronephrosis 3. Hematuria ED Disposition - Plan for ED Patient: Disposition: Home or Assisted Living Instructions: ED Kidney Stone w/ Colic Prescriptions: Tamsulosin HCl [Flomax] 0.4 mg PO DAILY #10 cap Prescription Printed Oxycodone HCl/Acetaminophen [Percocet 5/325] 1 tab PO Q6H PRN PRN 3 Days #12 tab PRN Reason: Pain Prescription Printed Ondansetron [Zofran Odt] 4 mg PO Q8H PRN PRN #14 tab PRN Reason: Nausea Prescription Printed Referrals: Care Physician,No Primary [Primary Care Provider] -
[2020-12-20] MEDS: Morphine 4 MG/ML Syringe IV ×2 (07:31→08:10)
[2020-12-20] MEDS: Ondansetron 4 MG/2 ML Vial IV (07:31)
[2020-12-20 07:38] LABS: Absolute Lymphocyte Count 1.92 X10^3/uL (0.83-4.51); Absolute Neutrophil Count 2.2 X10^3/uL (2.0-7.7); Basophil# 0.05 X10^3/uL; Basophil% 0.9 % (0-1); Eosinophil# 0.82 X10^3/uL; Eosinophils% 14.2 % (0-5); Hematocrit 39.9 % (40-54); Hemoglobin 13.6 g/dL (13.0-16.5); Lymphocyte # 1.92 X10^3/ul (4.0); Lymphocyte % 33.3 % (19-41); Mean Corp Hgb Conc 34.1 g/dL (32-36); Mean Corpuscular Hgb 28.9 pg (27.0-32.0); Mean Corpuscular Volume 84.7 fL (80-94); Mean Platelet Vol. 9.8 fl (6.2-12.0); Monocyte# 0.82 X10^3/uL; Monocyte% 14.2 % (0-10); NRBC Flagged by Analyzer 0 % (0-5); Neutrophil # 2.16 X10^3/uL (2.7-7.7); Neutrophil % 37.4 % (47-70); Platelet Count 195 K/mm3 (150-450); RBC Distribution Width CV 11.9 % (11.6-14.6); Red Blood Count 4.71 M/mm3 (4.6-6.2); White Blood Count 5.8 K/mm3 (4.4-11.0)
--- NOTE | 2020-12-20 07:45 | CT_ITS ---
STUDY: CT ABDOMEN AND PELVIS WITHOUT CONTRAST REASON FOR EXAM: Male, 25 years old. LEFT FLANK/LLQ PAIN THIS AM, HX [place] RADIATION DOSAGE (If Supplied By Facility): CTDIvol = ( 8.02 ) mGy, DLP = ( 398.87 ) mGycm TECHNIQUE: Transaxial images were obtained from the dome of the diaphragm to the symphysis pubis without oral contrast, and without intravenous contrast. Sagittal and coronal images were reconstructed. Individualized dose optimization techniques were used for this CT. COMPARISON: None. FINDINGS: The visualized lung bases are unremarkable. The visualized portions of the heart are within normal limits. Normal liver. Normal gallbladder and extrahepatic biliary system. Normal spleen. Normal pancreas. Normal bilateral adrenal glands. Normal right kidney. 3 mm obstructing stone of the distal left ureter with mild ureteral dilatation and hydronephrosis. Normal visualized stomach. Normal small intestine. Normal colon. There are surgical clips in the region of the appendix consistent with a prior appendectomy. Normal abdominal aorta. Normal inferior vena cava. Normal retroperitoneum. Normal urinary bladder. Normal abdominal wall. Normal osseous structures. CT/Abdomen/Pelvis without Cont IMPRESSION: 3 mm obstructing stone of the distal left ureter with mild ureteral dilatation and hydronephrosis. Electronically Signed: Jasmeet Eid MD at 8:15 EST Tel , Service support ,
[2020-12-20 07:50] LABS: Anion Gap 6 (5-15); BUN 24 mg/dL (7-18); BUN/Creat Ratio 25.1 RATIO (10-20); Calcium,Total 8.7 mg/dL (8.5-10.1); Chloride 106 mmol/L (98-107); Creatinine, Serum 0.96 mg/dL (0.70-1.30); EST Glomerular Filtration Rate 101 mL/min (>60); Est Glom Filt Rate - Afr Amer 122 mL/min (>60); Estimated Creatinine Clearance 124.19 ml/min; Glucose 118 mg/dL (74-106); Potassium 3.6 mmol/L (3.5-5.1); Sodium Level 140 mmol/L (136-145)
[2020-12-20] MEDS: Ketorolac 15 MG/ML Vial IV (08:13)
[2020-12-20] MEDS: oxyCODONE 5 MG Tablet PO (08:35)
[2020-12-20 08:39] VITALS: BP 114/61; PULSE 81; RESP 18; O2SAT 99
[2020-12-20 08:56] LABS: Bacteria 0 SEEN /hpf (None Seen); Mucous, Urine 0 SEEN /hpf (<or=2+); Squamous Epithelial Cells - UA 0 SEEN /hpf (0-5)
[2020-12-20 08:59] LABS: Color, Urine Yellow (Yellow); Glucose, Dipstick Normal (Normal); Ketone-Dipstick Negative (Negative); Leukocyte Esterase-Dipstick 25 /ul (Negative); Nitrite-Dipstick Negative (Negative); Occult Blood-Urine 10 /ul (Negative); Protein-Dipstick Negative (Negative); Urine Bilirubin Dipstick Negative (Negative); Urine Clarity Clear (Clear); Urine Urobilinogen Normal (Normal)
[2020-12-20 09:03] VITALS: RESP 16
[2020-12-20 09:06] LABS: Red Blood Cells-Urine 0-5 SEEN /hpf (0-5); White Blood Cells 0-5 SEEN /hpf (0-5)
[2020-12-20 09:29] VITALS: BP 114/61; PULSE 81; RESP 16; O2SAT 99
== END 2020-12-20 09:30 | disposition home or self-care (01) ==
LOC: ED 08:31
PROVIDERS: Emergency Provider Student in an Organized Health Care Education/Training Program
DX: N13.2 Hydronephrosis with renal and ureteral calculous obstruction (principal); Z87.442 Personal history of urinary calculi; F17.200 Nicotine dependence, unspecified, uncomplicated
CPT/HCPCS: 74176; 80048; 81001; 85025; 96374; 96375; 99284; A4216; J2405